=== PATIENT | female | born 1940 | race Caucasian/White ===

== ENCOUNTER 2019-01-27 15:22 | Emergency (ER) | payer OTHER, MEDICAID ==
[~2019-01-27] VITALS: Ht 149.9 cm; Wt 65.3 kg
[2019-01-27 15:26] VITALS: BP 123/84
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
--- NOTE | 2019-01-27 15:30 | NUR ---
NITIN PRUETT TALKING TO PT AT THIS TIME
--- NOTE | 2019-01-27 16:37 | NUR ---
PT AT CT AT THIS TIME
[2019-01-27 17:35] VITALS: BP 112/50
--- NOTE | 2019-01-27 17:35 | NUR ---
Patient discharged with v/s stable. Written and verbal after care instructions given and explained. Patient verbalized understanding. Wheel Chair Assisted with by caregiver TO CAR. All questions addressed prior to discharge. Advised to follow up with PMD.
== END 2019-01-27 17:35 | disposition home or self-care (01) ==
LOC: MED 15:22
DX: S05.12XA Contusion of eyeball and orbital tissues, left eye, initial encounter (principal); G30.9 Alzheimer's disease, unspecified; F02.80 Dementia in other diseases classified elsewhere, unspecified severity, without behavioral disturbance, psychotic disturbance, mood disturbance, and anxiety; I10 Essential (primary) hypertension; E03.9 Hypothyroidism, unspecified; F20.9 Schizophrenia, unspecified; Z98.890 Other specified postprocedural states; W50.0XXA Accidental hit or strike by another person, initial encounter; Y93.89 Activity, other specified; Y92.89 Other specified places as the place of occurrence of the external cause; Y99.8 Other external cause status
CPT/HCPCS: 70450; 99284

== ENCOUNTER 2019-02-07 09:29 | Inpatient (IN) | payer OTHER, MEDICAID ==
[~2019-02-07] VITALS: Ht 149.9 cm; Wt 73.0 kg
--- NOTE | 2019-02-07 09:31 | NUR ---
PT DEBBIE BLS TO ER BED 05
[2019-02-07 09:34] VITALS: BP 141/69
--- NOTE | 2019-02-07 09:43 | NUR ---
PT DEBBIE FROM [facility] FOR N/V/D SINCE THIS MORNING. UNKOWN HOW MANY EPISODES OF EMISES OR DIARRHEA. PT DENEIS PAIN AT THIS TIME. ABD IS SOFT, NON-TENDER, BOWEL SOUNDS ACTIVE X4 QUADRANTS. AAOX1, PER [facility] THIS IS PT BASELINE. VSS. ER MD TO SEE PT.
[2019-02-07] MEDS ORDERED: NACL 0.9% 1,000 ML IV ONE ×2 (09:52→14:40)
[2019-02-07] MEDS ORDERED: PROMETHAZINE 25 MG/ML VIAL IM ONE (09:55)
[2019-02-07] MEDS ORDERED: ONDANSETRON 4 MG/2 ML VIAL IVP ONE (09:55)
[2019-02-07 10:18] LABS: BASOPHILS % (AUTO) 0.1 % (0.0-2.0); EOSINOPHILS % (AUTO) 0.3 % (0.0-4.0); HEMATOCRIT 39.7 % (36-48); HEMOGLOBIN 12.9 g/dL (12.0-16.0); LYMPHOCYTES # (AUTO) 0.4 K/uL (2.5-16.5); LYMPHOCYTES % (AUTO) 3.7 % (20.5-51.1); MEAN CORPUSCULAR HEMOGLOBIN 27 pg (27-31); MEAN CORPUSCULAR HGB CONC 32 g/dL (33-37); MEAN CORPUSCULAR VOLUME 84.2 fL (80-94); MONOCYTES # (AUTO) 0.3 K/uL (0.8-1.0); NEUTROPHILS # (AUTO) 9.4 K/uL (1.8-7.7); NEUTROPHILS % (AUTO) 92.9 % (42.2-75.2); PLATELET COUNT (AUTO) 175 K/uL (140-450); RED BLOOD CELL COUNT(AUTO) 4.72 MIL/uL (4.20-5.40); RED CELL DISTRIBUTION WIDTH 14.1 % (11.6-13.7); WHITE BLOOD COUNT (AUTO) 10.1 K/uL (4.8-10.8)
--- NOTE | 2019-02-07 10:26 | NUR ---
PT WENT TO RADIALOGY AT THIS TIME.
[2019-02-07 10:27] LABS: ANION GAP 12.4 (8-16); CARBON DIOXIDE 26.5 mmol/L (21-32); CHLORIDE 103 mmol/L (98-107); CREATININE 1.2 mg/dL (0.6-1.3); GLUCOSE 139 mg/dL (74-106); POTASSIUM 3.9 mmol/L (3.5-5.1); SODIUM SERUM 138 mmol/L (136-145); UREA NITROGEN, BLOOD 28 mg/dL (7-18)
[2019-02-07 10:30] LABS: PROTHROMBIN TIME 9.4 secs (10.8-13.4)
--- NOTE | 2019-02-07 10:37 | NUR ---
PT RETURNED FROM RADIOLOGY
[2019-02-07 10:41] LABS: ALBUMIN 3.6 g/dL (3.4-5.0); AMYLASE 127 U/L (25-115); ASPARTATE AMINOTRANSFERASE 42 U/L (15-37); LIPASE 730 U/L (73-393); TOTAL BILIRUBIN 0.4 mg/dL (0.0-1.0)
[2019-02-07 10:51] LABS: ACETONE, SERUM NEGATIVE (NEGATIVE)
[2019-02-07 11:49] LABS: APPEARANCE,URINE CLEAR (CLEAR); BILIRUBIN,URINE NEGATIVE (NEGATIVE); BLOOD, URINE TRACE-I (NEGATIVE); COLOR,URINE YELLOW (YELLOW); LEUKOCYTE ESTERASE ,URINE NEGATIVE (NEGATIVE); NITRITE, URINE NEGATIVE (NEGATIVE); PH,URINE 5.5 (5.0-9.0); UGLUCOSE NEGATIVE (NEGATIVE)
[2019-02-07 12:02] LABS: RBC,URINE 0-5 /HPF (0-5); WBC,URINE 0-5 /HPF (0-5)
[2019-02-07 12:03] LABS: URINE AMORPHOUS URATE 1+ /HPF (None Seen)
--- NOTE | 2019-02-07 12:15 | NUR ---
PT PULLED OUT IV, ATTEMPTING TO GET OUT OF BED. EMT ADAKU AMBULATED PT TO RESTROOM. PT AAOX1, VSS.
[2019-02-07] MEDS ORDERED: LEVO0.114 PO (14:29)
[2019-02-07] MEDS ORDERED: LISI10TA11 PO (14:29)
[2019-02-07] MEDS ORDERED: ACET-2619 PO (14:29)
[2019-02-07] MEDS ORDERED: MIRT15TA PO (14:29)
[2019-02-07] MEDS ORDERED: CALC-46 PO (14:29)
[2019-02-07] MEDS ORDERED: RISP0.2515 PO (14:29)
[2019-02-07] MEDS ORDERED: CAPS1ADH5 TP (14:29)
[2019-02-07] MEDS ORDERED: CHLO25TA33 PO (14:29)
[2019-02-07] MEDS ORDERED: ACETAMINOPHEN 325 MG TAB PO PRN (14:40)
[2019-02-07] MEDS ORDERED: HYDROcodone/APAP 7.5/325 MG 1 TAB PO PRN (14:40)
[2019-02-07] MEDS ORDERED: ONDANSETRON 4 MG/2 ML VIAL IVP PRN (14:40)
[2019-02-07 15:10] VITALS: BP 127/47
--- NOTE | 2019-02-07 15:10 | NUR ---
Patient will be admitted to care of DR CHACKO. Admited to TEL. Will go to room 124A. Belongings list completed. Report to SHAYNA MARTINEZ.
--- NOTE | 2019-02-07 15:10 | NUR ---
PATIENT WAS TRANSFERRED FROM ER IN [facility]. REPORT WAS GIVEN AT BEDSIDE. VS WAS TAKEN. MRSA WAS SWABBED. PATIENT WAS AWAKE, A/0 X1, UNABLE TO ANSWER QUESTIONS APPROPRIATELY. RESPIRATION EVEN, UNLABOR ON ROOM AIR. SKIN DRY AND WARM. IV PATENT AND INTACT. PATIENT WAS ORIENTED TO ROOM, STAFF, AND CALL LIGHT. PLAN OF CARE WAS DISCUSSED WITH PATIENT. BED AT LOW POSITION, SIDE RAILS UP. CALL LIGHT WITHIN REACH. BED ALARM ACTIVE
[2019-02-07] MEDS: DEXT 5% /NACL 0.9% 1,000 ML IV SCH (15:32)
--- NOTE | 2019-02-07 17:00 | NUR ---
PATIENT WAS ASSISTED TO GO TO COMMODE, STEADY GAIT.
[2019-02-07 17:22] LABS: BARBITURATE, URINE NEG. ng/ml (NEG <=200); BENZODIAZEPINE, URINE NEG. ng/mL (NEG <=200); CANNABINOID, URINE NEG. ng/mL (NEG <=50); COCAINE, URINE NEG. ng/mL (NEG <=300); OPIATE, URINE NEG. ng/mL (NEG <=2000); PHENCYCLIDINE SCREEN,URINE NEG. ng/mL (NEG <=25)
[2019-02-07 17:26] LABS: CHOL/HDL RATIO 4.2 (1-4.5); FREE T4 (FREE THYROXINE) 1.22 ng/dL (0.76-1.46); THYROID STIMULATING HORMONE 0.08 uIU/mL (0.34-3.74)
--- NOTE | 2019-02-07 18:13 | NUR ---
PATIENT WAS RESTING COMFORTABLY. RESPIRATION EVEN, UNLABOR ON ROOM AIR. NO DISTRESS NOTED AT THIS TIME. IV PATENT AND INTACT.
--- NOTE | 2019-02-07 19:30 | NUR ---
REPORT WAS GIVEN TO SIMULATION TECHNICIAN NURSE. PATIENT IS STABLE AT THIS TIME
--- NOTE | 2019-02-07 19:31 | NUR ---
RECEIVED REPORT AT PT BEDSIDE FROM JUAN PARSONS. PT AAOX1 TO SELF ONLY, ON ROOM AIR. ABLE TO FOLLOW COMMANDS, AND ABLE TO MAKE SOME NEEDS KNOWN. PT AMBULATES WITH MODERATE ASSIST, AND SKIN IS INTACT. RESPIRATIONS EVEN AND UNLABORED. PT HAS A 20G IV TO RIGHT AC. DISCUSSED PLAN OF CARE AND SAFETY ISSUES WITH PT, PT VERBALIZED UNDERSTANDING BUT NEEDS REINFORCEMENT. NO SIGNS OF DISTRESS NOTED. DENIES PAIN. VITAL SIGNS STABLE. BED IN LOWEST POSITION, CALL LIGHT WITHIN REACH. WILL CONTINUE TO MONITOR.
[2019-02-07 20:00] VITALS: BP 98/49
[2019-02-07] MEDS: MIRTAZAPINE 15 MG TAB PO SCH (20:40)
[2019-02-07] MEDS: DOCUSATE SODIUM 100 MG GELCAP PO SCH (20:43)
--- NOTE | 2019-02-07 20:43 | NUR ---
ADMINISTERED SCHEDULED MEDICATIONS EXCEPT COLACE, PT TOLERATED WELL. PT REFUSED COLACE AND DAUGHTER SAID IT WAS OKAY BECAUSE PT HAD DIARRHEA EARLIER.
--- NOTE | 2019-02-07 22:24 | NUR ---
PT RESTING IN ROOM. NO SIGNS OF DISTRESS NOTED. DENIES PAIN. BED IN LOWEST POSITION, CALL LIGHT WITHIN REACH. WILL CONTINUE TO MONITOR.
[2019-02-08] VITALS: BP 116/46
--- NOTE | 2019-02-08 | NUR ---
NO SIGNS OF DISTRESS NOTED. BED IN LOWEST POSITION, CALL LIGHT WITHIN REACH. WILL CONTINUE TO MONITOR.
[2019-02-08] MEDS: DEXT 5% /NACL 0.9% 1,000 ML IV SCH ×2 (01:08→09:36)
--- NOTE | 2019-02-08 02:14 | NUR ---
PT SLEEPING, BUT EASILY AROUSABLE. DENIES HAVING ANY PAIN. BED IN LOWEST POSITION, CALL LIGHT WITHIN REACH. WILL CONTINUE TO MONITOR.
[2019-02-08 04:00] VITALS: BP 111/41
--- NOTE | 2019-02-08 04:00 | NUR ---
VITAL SIGNS STABLE, DENIES HAVING ANY PAIN. NO SIGNS OF DISTRESS NOTED. BED IN LOWEST POSITION, CALL LIGHT WITHIN REACH. WILL CONTINUE TO MONITOR.
[2019-02-08] MEDS: LEVOTHYROXINE 0.112 MG TAB PO SCH (06:09)
--- NOTE | 2019-02-08 06:11 | NUR ---
ADMINISTERED SCHEDULED MEDICATION, PT TOLERATED WELL.
[2019-02-08 06:51] LABS: BASOPHILS % (AUTO) 0.5 % (0.0-2.0); EOSINOPHILS # (AUTO) 0.1 K/uL (0-0.4); HEMATOCRIT 32.6 % (36-48); HEMOGLOBIN 10.6 g/dL (12.0-16.0); LYMPHOCYTES # (AUTO) 0.8 K/uL (2.5-16.5); MEAN CORPUSCULAR HEMOGLOBIN 27 pg (27-31); MEAN CORPUSCULAR HGB CONC 32 g/dL (33-37); MEAN CORPUSCULAR VOLUME 83.5 fL (80-94); MONOCYTES # (AUTO) 0.3 K/uL (0.8-1.0); MONOCYTES % (AUTO) 10.1 % (1.7-9.3); NEUTROPHILS # (AUTO) 1.7 K/uL (1.8-7.7); NEUTROPHILS % (AUTO) 60.4 % (42.2-75.2); PLATELET COUNT (AUTO) 134 K/uL (140-450); RED BLOOD CELL COUNT(AUTO) 3.91 MIL/uL (4.20-5.40); RED CELL DISTRIBUTION WIDTH 14.2 % (11.6-13.7); WHITE BLOOD COUNT (AUTO) 2.9 K/uL (4.8-10.8)
--- NOTE | 2019-02-08 07:26 | NUR ---
ENDORSED PT TO DAY SHIFT RN MAGGIE, AT BEDSIDE, FOR CONTINUITY OF CARE. PT IN STABLE CONDITION.
--- NOTE | 2019-02-08 07:29 | NUR ---
RECEIVED BEDSIDE REPORT FROM COOK APPRENTICE PASTRY NURSE FOR CONTINUITY OF CARE. PATIENT IS RESTING ON BED AT THIS TIME. PATIENT IS AOX1, TO NAME ONLY. RESPIRATION EVEN AND UNLABORED. ON RA. DENIES PAIN AND SOB. NO SIGNS OF DISTRESS NOTED. IV ON RAC 20G, INTACT AND DRY, INFUSING PER MD ORDER . R SKIN INTACT AND DRY. ABLE TO AMBULATE WITH ASSIST. BEDSIDE COMMODE IS BY BEDSIDE. FALL PRECAUTION IN PLACE. DISCUSSED PLAN OF CARE WITH PATIENT, AND PATIENT SAID OK. BED ALARM ACTIVATED. BED IN LOW POSITION AND CALL LIGHT WITHIN REACH. TELE MONITOR ATTACHED. INSTRUCTED PATIENT TO USE THE CALL LIGHT FOR ANY ASSISTANCE AND PATIENT SAID ALRIGHT.
[2019-02-08 07:43] LABS: ANION GAP 8.1 (8-16); CARBON DIOXIDE 25.1 mmol/L (21-32); CHLORIDE 109 mmol/L (98-107); CREATININE 0.8 mg/dL (0.6-1.3); GLUCOSE 96 mg/dL (74-106); POTASSIUM 3.2 mmol/L (3.5-5.1); SODIUM SERUM 139 mmol/L (136-145); UREA NITROGEN, BLOOD 17 mg/dL (7-18)
[2019-02-08 07:47] LABS: MAGNESIUM 1.7 mg/dL (1.8-2.4); PHOSPHORUS 2.7 mg/dL (2.5-4.9)
[2019-02-08 08:00] VITALS: BP 105/48
--- NOTE | 2019-02-08 08:33 | NUR ---
PATIENT HAS BEEN SCREENED AND CATEGORIZED MODERATE NUTRITION RISK. PATIENT WILL BE SEEN WITHIN 3-5 DAYS OF ADMISSION. 02/10/19[address]
[2019-02-08] MEDS ORDERED: risperiDONE 1 MG TAB PO SCH (09:00)
[2019-02-08] MEDS: DOCUSATE SODIUM 100 MG GELCAP PO SCH ×2 (09:20→21:00)
[2019-02-08] MEDS: LISINOPRIL 10 MG TAB PO SCH (09:21)
--- NOTE | 2019-02-08 09:24 | NUR ---
ADMINISTERED MEDS PER MD ORDER, PATIENT TOLERATED WELL. HOLD HEPARIN DUE TO LOW PLT 134 FROM AM LAB. PATIENT IS AWAKE AND WATCHING TV ON BED. INSTRUCTED PATIENT TO USE THE CALL LIGHT FOR ANY ASSISTANCE AND PATIENT VERBALIZED OK. BED ALARM ACTIVATED. BED IN LOW POSITION AND CALL LIGHT WITHIN REACH. TELE MONITOR ATTACHED.
--- NOTE | 2019-02-08 10:10 | NUR ---
PATIENT IS TALKING TO ISA MARIE AT BEDSIDE. NO SIGNS OF DISTRESS NOTED. SAFETY MEASURES IN PLACE. TELE MONITOR ATTACHED.
--- NOTE | 2019-02-08 11:20 | NUR ---
PATIENT IS RESTING ON BED AT THIS TIME. DENIES PAIN AND SOB. NO SIGNS OF DISTRESS NOTED. SAFETY MEASURES IN PLACE. BED ALARM ACTIVATED. TELE MONITOR ATTACHED.
[2019-02-08 12:00] VITALS: BP 124/43
[2019-02-08] MEDS: NACL 0.9% 1,000 ML IV SCH (12:25)
[2019-02-08] MEDS ORDERED: MAGNESIUM OXIDE 400 MG TAB PO SCH (12:30)
[2019-02-08] MEDS ORDERED: POTASSIUM CHLORIDE 10 MEQ TABER PO SCH (12:30)
--- NOTE | 2019-02-08 12:40 | NUR ---
PATIENT RECEIVED HER LUNCH TRAY. SHE IS SITTING UP ON BED AND DRINKING SOUP. NO SIGNS OF DISTRESS NOTED. SAFETY MEASURES IN PLACE.
--- NOTE | 2019-02-08 13:20 | NUR ---
PATIENT IS RESTING ON BED AT THIS TIME. NO SIGNS OF DISTRESS NOTED. SAFETY MEASURES IN PLACE. TELE MONITOR ATTACHED.
--- NOTE | 2019-02-08 13:25 | NUR ---
PATIENT PULLED OUT HER OWN IV. CHECKED IV CANNULA INTACT AND NO BLEEDING AT IV SITE. STARTED NEW IV ON L AC 22G, PATENT AND INTACT, INFUSING PER MD ORDER. ORIENTED PATIENT NOT TO PULL OUT HER IV, AND PATIENT SAID OK.
[2019-02-08 14:35] LABS: CHOL/HDL RATIO 3.7 (1-4.5)
--- NOTE | 2019-02-08 15:35 | NUR ---
PATIENT IS AWAKE ON BED AND WATCHING TV. NO SIGNS OF DISTRESS NOTED. SAFETY MEASURES IN PLACE.
--- NOTE | 2019-02-08 17:15 | NUR ---
PATIENT'S DAUGHTER RENETTA IS BY BEDSIDE. NO SIGNS OF DISTRESS NOTED.
[2019-02-08 18:36] VITALS: BP 135/53
--- NOTE | 2019-02-08 19:25 | NUR ---
ENDORSED PATIENT AT BEDSIDE TO MANAGER RAIL NURSE FOR CONTINUITY OF CARE. DAUGHTER IS AT BEDSIDE. PATIENT IS IN STABLE CONDITION.
--- NOTE | 2019-02-08 19:26 | NUR ---
RECEIVED REPORT FROM DAY SHIFT NURSE. AAOX1. NO C/O PAIN OR SOB. NO C/O NAUSEA OR VOMITING. ON ROOM AIR. SKIN INTACT. IV TO LEFT AC #22G, NS AT 60 ML/HR INFUSING WELL. PT HAS BEDSIDE COMMODE. FALL PRECAUTION IN PLACE. CALL LIGHT WITHIN REACH.
[2019-02-08] MEDS: MIRTAZAPINE 15 MG TAB PO SCH (20:11)
--- NOTE | 2019-02-08 20:15 | NUR ---
PT'S PLATELET COUNT TODAY 134. ASKED DR. MI IF IT IS OKAY TO GIVE HEPARIN 5000 UNITS SUBQ. PER , IT'S OKAY TO GIVE IT.
--- NOTE | 2019-02-08 20:20 | NUR ---
PT'S DAUGHTER TAYA AT BEDSIDE, REFUSED COLACE. PER DAUGHTER, PT HAD A BM TODAY AND DOESN'T NEED COLACE.
[2019-02-08] MEDS ORDERED: MELATONIN 3 MG TAB PO PRN (23:30)
--- NOTE | 2019-02-08 23:42 | NUR ---
PT C/O UNABLE TO SLEEP AND TRIED TO GET OUT OF BED MULTIPLE TIMES. BED ALARM ON. DR. MI MADE AWARE AND ORDERED MELATONIN 1.5 MG. PT TOLERATED WELL. FALL PRECAUTION IN PLACE.
[2019-02-09] VITALS: BP 131/58
--- NOTE | 2019-02-09 02:30 | NUR ---
PT SLEEPING BUT WAKES EASILY. NO S/S OF PAIN OR DISCOMFORT. NO S/S OF RESP DISTRESS NOTED. SAFETY PRECAUTION IN PLACE.
--- NOTE | 2019-02-09 04:05 | NUR ---
PT AWAKE AT THIS TIME. NO C/O PAIN OR SOB. ALL NEEDS ATTENDED AT THIS TIME.
[2019-02-09] MEDS: NACL 0.9% 1,000 ML IV SCH (04:45)
--- NOTE | 2019-02-09 06:00 | NUR ---
PT SLEEPING. NO S/S OF RESP DISTRESS. NO S/S OF PAIN.
[2019-02-09] MEDS: LEVOTHYROXINE 0.112 MG TAB PO SCH (07:04)
--- NOTE | 2019-02-09 07:10 | NUR ---
ENDORSED PT TO DAY SHIFT NURSE. PT IN STABLE CONDITION.
--- NOTE | 2019-02-09 07:11 | NUR ---
RECEIVED REPORT FROM PM NURSE AT BEDSIDE. PT SLEEPING IN HER BED COMFORTABLY. IVF INFUSING WELL. PT IS CONFUSED, BED ALARM ON. CALL LIGHT WITHIN PTS REACH. INFORMED HER TO USE CALL LIGHT FOR ANY HELP. WILL CONTINUE TO MONITOR PT.
[2019-02-09 07:38] LABS: MAGNESIUM 2.1 mg/dL (1.8-2.4); PHOSPHORUS 2.2 mg/dL (2.5-4.9)
[2019-02-09 07:39] LABS: BASOPHILS % (AUTO) 1.2 % (0.0-2.0); EOSINOPHILS # (AUTO) 0.1 K/uL (0-0.4); EOSINOPHILS % (AUTO) 3.9 % (0.0-4.0); HEMATOCRIT 35.1 % (36-48); HEMOGLOBIN 11.4 g/dL (12.0-16.0); LYMPHOCYTES # (AUTO) 0.9 K/uL (2.5-16.5); LYMPHOCYTES % (AUTO) 36.8 % (20.5-51.1); MEAN CORPUSCULAR HEMOGLOBIN 27 pg (27-31); MEAN CORPUSCULAR HGB CONC 33 g/dL (33-37); MEAN CORPUSCULAR VOLUME 83.4 fL (80-94); MONOCYTES # (AUTO) 0.3 K/uL (0.8-1.0); MONOCYTES % (AUTO) 14.6 % (1.7-9.3); NEUTROPHILS % (AUTO) 43.5 % (42.2-75.2); PLATELET COUNT (AUTO) 142 K/uL (140-450); RED BLOOD CELL COUNT(AUTO) 4.21 MIL/uL (4.20-5.40); RED CELL DISTRIBUTION WIDTH 14.3 % (11.6-13.7); WHITE BLOOD COUNT (AUTO) 2.3 K/uL (4.8-10.8)
[2019-02-09 07:41] LABS: ANION GAP 11.3 (8-16); CARBON DIOXIDE 25.9 mmol/L (21-32); CHLORIDE 107 mmol/L (98-107); CREATININE 0.8 mg/dL (0.6-1.3); GLUCOSE 95 mg/dL (74-106); POTASSIUM 3.2 mmol/L (3.5-5.1); SODIUM SERUM 141 mmol/L (136-145); UREA NITROGEN, BLOOD 9 mg/dL (7-18)
[2019-02-09 07:47] LABS: AMYLASE 64 U/L (25-115); LIPASE 291 U/L (73-393)
[2019-02-09 08:00] VITALS: BP 119/52
[2019-02-09] MEDS: DOCUSATE SODIUM 100 MG GELCAP PO SCH (09:43)
[2019-02-09] MEDS: LISINOPRIL 10 MG TAB PO SCH (09:44)
--- NOTE | 2019-02-09 09:48 | NUR ---
ADMINISTERED MEDS TO PT ORDERED. PT LYING ON HER BED, RESTING COMFORTABLY. NO SIGN OF DISTRESS NOTED. BED ALARM ON. CALL LIGHT WITHIN REACH. WILL CONTINUE TO MONITOR PT.
--- NOTE | 2019-02-09 10:59 | NUR ---
CONTACTED NITIN SIMPSON, SPOKE WITH [employer]IS OFC ENGINE EMISSION TECHNICIAN, STATED SHE WILL SET UP A SKIN TANNER AT 1 PM TODAY. SITAL NURSE ASSIGNED MADE AWARE.
--- NOTE | 2019-02-09 11:30 | NUR ---
CHECKED ON PT. CHAIN MAKER LOOM CONTROL WITH THE PT. PT VERY CONFUSED, PULLED HER IV OUT. PT TO BE DISCHARGED PT HAS DC ORDER. INFORMED NITIN FRANCO. AGRICULTURAL ECONOMICS TEACHER TIME 1300. PT KEEPS GETTING OUT OF BED. WILL CONTINUE TO MONITOR PT.
[2019-02-09] MEDS ORDERED: POTASSIUM CHLORIDE 40 MEQ, LIDOCAINE MPF 1% - 5 mL VIAL 25 MG in NACL 0.9% 250 ML IV ONE (11:55)
[2019-02-09] MEDS ORDERED: POTASSIUM CHLORIDE 20% 40 MEQ/15 ML UDC PO SCH (13:30)
--- NOTE | 2019-02-09 14:40 | NUR ---
PT ROCIO ALVAREZ AT THE BEDSIDE. GAVE ALL THE DISCHARGE PAPER WORK AND THE PACKET. [facility]. PT STABLE AT THE TIME OF DISCHARGE.
--- NOTE | 2019-02-09 16:31 | NUR ---
JUAN MARTINEZ THE PRIMARY NURSE RECEIVED A CALL FROM [employer] AND REQUESTED THE D/C SUMMARY TO BE FAXED TO [phone] AND FAXED.
== END 2019-02-09 14:40 | DRG 438 ==
LOC: MED 09:29 → MTU 14:37
PROVIDERS: ADMIT General Practice; ATTEND General Practice
DX: K85.90 Acute pancreatitis without necrosis or infection, unspecified (principal); G93.41 Metabolic encephalopathy; K44.9 Diaphragmatic hernia without obstruction or gangrene; G30.9 Alzheimer's disease, unspecified; F02.80 Dementia in other diseases classified elsewhere, unspecified severity, without behavioral disturbance, psychotic disturbance, mood disturbance, and anxiety; F20.9 Schizophrenia, unspecified; I10 Essential (primary) hypertension; E86.0 Dehydration; E03.9 Hypothyroidism, unspecified; K57.30 Diverticulosis of large intestine without perforation or abscess without bleeding; F32.9 Major depressive disorder, single episode, unspecified; E83.42 Hypomagnesemia; E87.6 Hypokalemia; D64.9 Anemia, unspecified; D71 Functional disorders of polymorphonuclear neutrophils; E78.5 Hyperlipidemia, unspecified; Z79.899 Other long term (current) drug therapy
CPT/HCPCS: 36415; 70450; 71045; 76705; 80048; 80053; 80305; 81001; 82009; 82140; 82150; 83036; 83605; 83615; 83690; 83735; 83880; 84100; 84439; 84443; 84484; 85025; 85610; 87081; 93005; 96361; 96372; 96374; 97116; 99285; C1758; J1644; J2001; J2405; J2550; J3480; J7030; J7042; Q0092

== ENCOUNTER 2019-04-30 12:54 | Emergency (ER) | payer MEDICAID, OTHER ==
[~2019-04-30] VITALS: Ht 149.9 cm; Wt 69.9 kg
[~2019-04-30 12:54] MED LIST: ACET-2619 PO; CALC-46 PO; CAPS1ADH5 TP; CHLO25TA33 PO; LEVO0.114 PO; LISI10TA11 PO; MIRT15TA PO; RISP0.2515 PO
[2019-04-30 13:03] VITALS: BP 136/71
--- NOTE | 2019-04-30 13:07 | NUR ---
PT AMB TO BED 7 WITH STEADY GAIT
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
--- NOTE | 2019-04-30 14:08 | NUR ---
Patient discharged with v/s stable. Written and verbal after care instructions given and explained. Patient alert, oriented and verbalized understanding of instructions. Ambulatory with steady gait. All questions addressed prior to discharge. ID band removed. Patient advised to follow up with PMD. Rx of BENADRYL TABLET AND CREAM given. Patient educated on indication of medication including possible reaction and side effects. Opportunity to ask questions provided and answered.
[2019-04-30 14:09] VITALS: BP 136/71
== END 2019-04-30 14:08 | disposition home or self-care (01) ==
LOC: MED 12:54
DX: R21 Rash and other nonspecific skin eruption (principal); I10 Essential (primary) hypertension; E03.9 Hypothyroidism, unspecified; G30.9 Alzheimer's disease, unspecified; F02.80 Dementia in other diseases classified elsewhere, unspecified severity, without behavioral disturbance, psychotic disturbance, mood disturbance, and anxiety; Z79.899 Other long term (current) drug therapy; Z79.1 Long term (current) use of non-steroidal anti-inflammatories (NSAID)
CPT/HCPCS: 99282

== ENCOUNTER 2019-05-07 18:00 | Emergency (ER) | payer OTHER ==
[~2019-05-07] VITALS: Ht 147.3 cm; Wt 70.5 kg
[2019-05-07 18:04] VITALS: BP 131/63
[2019-05-07] MEDS ORDERED: predniSONE 20 MG TAB PO ONE (18:25)
[2019-05-07 18:55] VITALS: BP 124/67
== END 2019-05-07 18:55 | disposition home or self-care (01) ==
LOC: MED 18:00
DX: S40.862A Insect bite (nonvenomous) of left upper arm, initial encounter (principal); S40.861A Insect bite (nonvenomous) of right upper arm, initial encounter; S80.862A Insect bite (nonvenomous), left lower leg, initial encounter; S80.861A Insect bite (nonvenomous), right lower leg, initial encounter; S30.861A Insect bite (nonvenomous) of abdominal wall, initial encounter; S20.369A Insect bite (nonvenomous) of unspecified front wall of thorax, initial encounter; S20.469A Insect bite (nonvenomous) of unspecified back wall of thorax, initial encounter; R21 Rash and other nonspecific skin eruption; W57.XXXA Bitten or stung by nonvenomous insect and other nonvenomous arthropods, initial encounter; Y93.89 Activity, other specified; Y92.89 Other specified places as the place of occurrence of the external cause; Y99.8 Other external cause status
CPT/HCPCS: 99283; J7512

== ENCOUNTER 2019-05-21 18:55 | Emergency (ER) | payer OTHER, MEDICAID ==
[~2019-05-21] VITALS: Ht 147.3 cm; Wt 69.9 kg
[2019-05-21 19:01] VITALS: BP 119/77
--- NOTE | 2019-05-21 19:06 | NUR ---
WAIT AT LOBBY.VSS.
--- NOTE | 2019-05-21 19:35 | NUR ---
PT AMBULATED TO BED 08 WITH STEADY GAIT. ACCOMPANIED BY DAUGHTER.
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
[2019-05-21 21:05] VITALS: BP 129/80
--- NOTE | 2019-05-21 21:05 | NUR ---
Patient discharged with v/s stable. Written and verbal after care instructions given and explained. Patient alert, oriented and verbalized understanding of instructions. Ambulatory with steady gait. All questions addressed prior to discharge. ID band removed. Patient daughter advised to follow up with PMD. Rx of Permethrin given. Patient educated on indication of medication including possible reaction and side effects. Opportunity to ask questions provided and answered.
== END 2019-05-21 21:05 | disposition home or self-care (01) ==
LOC: MED 18:55
DX: B86 Scabies (principal); I10 Essential (primary) hypertension; E03.9 Hypothyroidism, unspecified; G30.9 Alzheimer's disease, unspecified; F02.80 Dementia in other diseases classified elsewhere, unspecified severity, without behavioral disturbance, psychotic disturbance, mood disturbance, and anxiety; Z79.1 Long term (current) use of non-steroidal anti-inflammatories (NSAID); Z79.899 Other long term (current) drug therapy
CPT/HCPCS: 99283

== ENCOUNTER 2019-05-26 19:56 | Emergency (ER) | payer OTHER, MEDICAID ==
[~2019-05-26] VITALS: Ht 149.9 cm; Wt 69.9 kg
[2019-05-26 20:04] VITALS: BP 126/68
--- NOTE | 2019-05-26 20:04 | NUR ---
TRIAGE COMPLETE. PT TO WAIT IN LOBBY FOR BED IN MAIN ED. VSS.
--- NOTE | 2019-05-26 20:32 | NUR ---
PT REQUESTING PERMETHRIN 5% CREAM 60 GM FOR MEDICATION REFILL.
--- NOTE | 2019-05-26 22:20 | NUR ---
PT CALLED FROM LOBBY. NO ANSWER.
== END 2019-05-26 22:20 | disposition left against medical advice (07) ==
LOC: MED 19:56
DX: Z76.0 Encounter for issue of repeat prescription (principal); Z53.21 Procedure and treatment not carried out due to patient leaving prior to being seen by health care provider

== ENCOUNTER 2019-06-16 13:04 | Emergency (ER) | payer OTHER, MEDICAID ==
[~2019-06-16] VITALS: Ht 152.4 cm; Wt 68.0 kg
[2019-06-16 13:04] VITALS: BP 96/34
--- NOTE | 2019-06-16 13:11 | NUR ---
Patient bib bls taken to bed 1
--- NOTE | 2019-06-16 13:35 | NUR ---
NOTIFIED DR. RICKS OF BP 96/34, TO PLACE ORDERS.
[2019-06-16] MEDS ORDERED: NACL 0.9% 1,000 ML IV SCH (13:36)
--- NOTE | 2019-06-16 13:41 | NUR ---
DEBBIE FROM [facility], C/O FLU-LIKE SYMPTOMS AND DECREASED APPETITE X2 DAYS. PT ALSO RECEIVING TX FOR SCABIES (FINISHED TOPICAL AND JUST STARTED ORAL). PT UNABLE TO CLEARLY CONVEY SYMPTOMS, DUE TO HISTORY OF DEMENTIA. HISTORY IS FRAGMENTED AND CONTRADICTORY. LUNGS CTAB. NO COUGH NOTED AT THIS TIME. HX DEMENTIA
--- NOTE | 2019-06-16 13:47 | NUR ---
XRAY AT BEDSIDE.
--- NOTE | 2019-06-16 13:48 | NUR ---
LAB AT BEDSIDE.
[2019-06-16 14:03] LABS: BASOPHILS % (AUTO) 0.2 % (0.0-2.0); EOSINOPHILS % (AUTO) 0.5 % (0.0-4.0); HEMATOCRIT 34.8 % (36-48); HEMOGLOBIN 11.4 g/dL (12.0-16.0); LYMPHOCYTES # (AUTO) 1.3 K/uL (2.5-16.5); LYMPHOCYTES % (AUTO) 12.8 % (20.5-51.1); MEAN CORPUSCULAR HEMOGLOBIN 29 pg (27-31); MEAN CORPUSCULAR HGB CONC 33 g/dL (33-37); MEAN CORPUSCULAR VOLUME 87.5 fL (80-94); MONOCYTES # (AUTO) 0.9 K/uL (0.8-1.0); NEUTROPHILS # (AUTO) 7.7 K/uL (1.8-7.7); NEUTROPHILS % (AUTO) 77.5 % (42.2-75.2); PLATELET COUNT (AUTO) 165 K/uL (140-450); RED BLOOD CELL COUNT(AUTO) 3.98 MIL/uL (4.20-5.40); RED CELL DISTRIBUTION WIDTH 13.6 % (11.6-13.7)
--- NOTE | 2019-06-16 14:10 | NUR ---
URINE SAMPLE HANDED TO POLEYARD SUPERVISOR. Addendum: 06/16/19 at 1530 by JOSHUA SAMPLE VIA IN&OUT CATH
[2019-06-16 14:13] LABS: ANION GAP 8.8 (8-16); CARBON DIOXIDE 30.6 mmol/L (21-32); CHLORIDE 106 mmol/L (98-107); CREATININE 1.8 mg/dL (0.6-1.3); GLUCOSE 114 mg/dL (74-106); POTASSIUM 3.4 mmol/L (3.5-5.1); SODIUM SERUM 142 mmol/L (136-145); UREA NITROGEN, BLOOD 34 mg/dL (7-18)
[2019-06-16 14:19] LABS: ALBUMIN 3.3 g/dL (3.4-5.0); ASPARTATE AMINOTRANSFERASE 34 U/L (15-37); LIPASE 314 U/L (73-393); TOTAL BILIRUBIN 0.5 mg/dL (0.0-1.0)
[2019-06-16 14:28] LABS: APPEARANCE,URINE CLEAR (CLEAR); BILIRUBIN,URINE 1+ (NEGATIVE); BLOOD, URINE NEGATIVE (NEGATIVE); COLOR,URINE YELLOW (YELLOW); LEUKOCYTE ESTERASE ,URINE TRACE (NEGATIVE); NITRITE, URINE NEGATIVE (NEGATIVE); PH,URINE 5.5 (5.0-9.0); UGLUCOSE NEGATIVE (NEGATIVE)
[2019-06-16 14:39] LABS: RBC,URINE 0-5 /HPF (0-5); WBC,URINE 0-5 /HPF (0-5)
--- NOTE | 2019-06-16 14:42 | NUR ---
LEFT VOICEMAIL FOR DAUGHTER TAYA- PT WANTS TO SPEAK TO HER.
--- NOTE | 2019-06-16 14:52 | NUR ---
PT FOUND IN ROOM, STANDING BY BED, GETTING DRESSED. PT REMOVED ALL LEADS, IV, PULSE OX.
--- NOTE | 2019-06-16 14:56 | NUR ---
DAUGHTER TAYA SPOKE ON PHONE WITH PATIENT. PT AGREED TO STAY HERE AND WAIT FOR TAYA.
--- NOTE | 2019-06-16 15:09 | NUR ---
DR. RICKS EVALUATING PT AT BEDSIDE.
--- NOTE | 2019-06-16 15:19 | NUR ---
SPOKE WITH NITIN SIMPSON AND NO TRANSPORTATION AVAILABLE. FIRST MATE GOES HOME AT 1500.
--- NOTE | 2019-06-16 15:33 | NUR ---
PT RESTING IN BED. NAD. RESPIRATION EVEN AND UNLABORED.
--- NOTE | 2019-06-16 16:01 | NUR ---
WILL D/C PATIENT WHEN TRANSPORT AVAILABLE.
--- NOTE | 2019-06-16 16:25 | NUR ---
INFORMED DR. RICKS OF BP 120/38. PER RADHA YODER TO PROCEED WITH DISCHARGE.
--- NOTE | 2019-06-16 16:35 | NUR ---
Patient discharged with v/s stable. Written and verbal after care instructions given and explained. Daughter Florence verbalized understanding. Wheel Chair Assisted with to car. All questions addressed prior to discharge. Dr. Granados explained visit to daughter Florence and answered all questions. Advised to follow up with PMD.
[2019-06-16 16:43] VITALS: BP 120/38
== END 2019-06-16 16:35 | disposition home or self-care (01) ==
LOC: MED 13:04
DX: R41.0 Disorientation, unspecified (principal); F03.90 Unspecified dementia, unspecified severity, without behavioral disturbance, psychotic disturbance, mood disturbance, and anxiety; R05 Cough; G30.9 Alzheimer's disease, unspecified; I10 Essential (primary) hypertension; E03.9 Hypothyroidism, unspecified; Z79.899 Other long term (current) drug therapy
CPT/HCPCS: 36415; 71045; 80053; 81001; 83690; 85025; 96360; 99284; J7030; Q0092; C1758

== ENCOUNTER 2019-07-29 14:31 | Emergency (ER) | payer OTHER, MEDICAID ==
[~2019-07-29] VITALS: Ht 129.5 cm; Wt 68.0 kg
[2019-07-29 14:49] VITALS: BP 115/60
--- NOTE | 2019-07-29 14:50 | NUR ---
BIB JOSHUA W C/O LOWER BACK PAIN STARTING YESTERDAY. PER JOSHUA, PT HAS BEEN MORE AGGITATED THAN USUAL AND HAS BEEN COMPLAINING OF BACK PAIN. DENIES INJURY. DENIES PAIN URINATING. JOSHUA REPORTS THAT SHE FEELS PT IS BEHAVING DIFFERENTLY , YESTERDAY SHE KNEW HER GRANDAUGHTERS NAME AND TODAY SHE DIDN'T. A/O X2 TO PERSON AND ONLY. [facility]: 14 ERMD MADE AWARE OF STATUS. SIDE RAILSX1. GRANDDAUGHTER AT BEDSIDE. HX: CARDIAC PROBLEMS, DEMENTIA RX: UNKNOWN
--- NOTE | 2019-07-29 14:59 | NUR ---
PT TAKEN TO BED 4.
--- NOTE | 2019-07-29 15:12 | NUR ---
Dr. Muñoz evaluating patient at bedside.
[2019-07-29] MEDS ORDERED: NACL 0.9% 1,000 ML IV ONE (15:15)
[2019-07-29 15:38] LABS: BASOPHILS % (AUTO) 0.5 % (0.0-2.0); EOSINOPHILS # (AUTO) 0.1 K/uL (0-0.4); EOSINOPHILS % (AUTO) 1.8 % (0.0-4.0); HEMATOCRIT 32.5 % (36-48); HEMOGLOBIN 10.5 g/dL (12.0-16.0); LYMPHOCYTES # (AUTO) 1.1 K/uL (2.5-16.5); LYMPHOCYTES % (AUTO) 21.6 % (20.5-51.1); MEAN CORPUSCULAR HEMOGLOBIN 28 pg (27-31); MEAN CORPUSCULAR HGB CONC 32 g/dL (33-37); MEAN CORPUSCULAR VOLUME 88.2 fL (80-94); MONOCYTES # (AUTO) 0.5 K/uL (0.8-1.0); MONOCYTES % (AUTO) 8.9 % (1.7-9.3); NEUTROPHILS # (AUTO) 3.5 K/uL (1.8-7.7); NEUTROPHILS % (AUTO) 67.2 % (42.2-75.2); PLATELET COUNT (AUTO) 181 K/uL (140-450); RED BLOOD CELL COUNT(AUTO) 3.69 MIL/uL (4.20-5.40); RED CELL DISTRIBUTION WIDTH 12.9 % (11.6-13.7); WHITE BLOOD COUNT (AUTO) 5.2 K/uL (4.8-10.8)
[2019-07-29 15:49] LABS: ANION GAP 8.9 (8-16); CARBON DIOXIDE 30.4 mmol/L (21-32); CHLORIDE 107 mmol/L (98-107); CREATININE 1.1 mg/dL (0.6-1.3); GLUCOSE 102 mg/dL (74-106); POTASSIUM 4.3 mmol/L (3.5-5.1); SODIUM SERUM 142 mmol/L (136-145); UREA NITROGEN, BLOOD 25 mg/dL (7-18)
[2019-07-29 15:55] LABS: ALBUMIN 3.3 g/dL (3.4-5.0); ASPARTATE AMINOTRANSFERASE 30 U/L (15-37); LIPASE 433 U/L (73-393); TOTAL BILIRUBIN 0.2 mg/dL (0.0-1.0)
--- NOTE | 2019-07-29 17:37 | NUR ---
PT GOIGN TO CT VIA WHEELCHAIR
--- NOTE | 2019-07-29 18:06 | NUR ---
PATIENT IS IN NO DISTRESS AT THIS TIME. DAUGHTER AT BEDSIDE. WILL CONTINUE TO MONITOR.
[2019-07-29 19:17] LABS: APPEARANCE,URINE CLEAR (CLEAR); BILIRUBIN,URINE NEGATIVE (NEGATIVE); BLOOD, URINE NEGATIVE (NEGATIVE); COLOR,URINE YELLOW (YELLOW); LEUKOCYTE ESTERASE ,URINE TRACE (NEGATIVE); NITRITE, URINE NEGATIVE (NEGATIVE); UGLUCOSE NEGATIVE (NEGATIVE)
[2019-07-29 19:22] VITALS: BP 110/58
--- NOTE | 2019-07-29 19:22 | NUR ---
Patient discharged with v/s stable. Written and verbal after care instructions given and explained. Patient verbalized understanding. Ambulatory with steady gait. All questions addressed prior to discharge. Advised to follow up with PMD.
[2019-07-29 19:30] LABS: RBC,URINE NONE SEEN /HPF (0-5); WBC,URINE 0-5 /HPF (0-5)
== END 2019-07-29 19:22 | disposition home or self-care (01) ==
LOC: MED 14:31
DX: R41.0 Disorientation, unspecified (principal); M54.5 Low back pain; I10 Essential (primary) hypertension; E03.9 Hypothyroidism, unspecified; G30.9 Alzheimer's disease, unspecified; F02.80 Dementia in other diseases classified elsewhere, unspecified severity, without behavioral disturbance, psychotic disturbance, mood disturbance, and anxiety; Z79.899 Other long term (current) drug therapy; Z79.1 Long term (current) use of non-steroidal anti-inflammatories (NSAID)
CPT/HCPCS: 36415; 74176; 80053; 81001; 83690; 84484; 85025; 96360; 99284; J7030

== ENCOUNTER 2020-07-23 14:48 | Inpatient (IN) | payer OTHER, MEDICAID, SELFPAY ==
[~2020-07-23] VITALS: Ht 154.9 cm; Wt 60.8 kg
--- NOTE | 2020-07-23 14:50 | NUR ---
Patient DEBBIE SUAZO from [facility], transferred to bed 3. RN evaluating patient at bedside.
[2020-07-23 14:58] VITALS: BP 145/89
--- NOTE | 2020-07-23 15:10 | NUR ---
79 YEAR OLD FEMALE BIBA, PER EMS IT IS BECAUSE PATIENT NORMALLY IS ALOT MORE ACTIVE BUT TODAY HAS NOT GOTTEN OUT OF BED. PT IS AOX0, DOES NOT ANSWER QUESTIONS BUT STATES "I DO NOT KNOW". PT BREATHING EVEN AND UNLABORED, SKIN WARM AND DRY. NO DISTRESS NOTED. PT EBED IN LOWEST POSITION, LOCKED, BED RAIL UPX2. PMH - ALZHEIMER, DEMENTIA, HTN ALLERGIES - NKA
[2020-07-23] MEDS ORDERED: NACL 0.9% 1,000 ML IV ONE (15:45)
--- NOTE | 2020-07-23 15:46 | NUR ---
Dr. Salazar is evaluating the patient at bedside.
--- NOTE | 2020-07-23 15:57 | NUR ---
COVID SWAB SENT TO LAB
--- NOTE | 2020-07-23 16:17 | NUR ---
XRAY IS AT BEDSIDE.
--- NOTE | 2020-07-23 16:30 | NUR ---
RECEIVED CRITICAL LAB FROM [facility]COM ALANIZ +COVID, DR. COTTO MADE AWARE.
--- NOTE | 2020-07-23 16:30 | NUR ---
PT ALERT AND AWAKE, BREATHING EVEN AND UNLABORED. NO DISTRESS NOTED
[2020-07-23 16:39] LABS: BASOPHILS % (AUTO) 0.2 % (0.0-2.0); HEMATOCRIT 33.8 % (36-48); HEMOGLOBIN 10.9 g/dL (12.0-16.0); LYMPHOCYTES % (AUTO) 39.6 % (20.5-51.1); MEAN CORPUSCULAR HEMOGLOBIN 28 pg (27-31); MEAN CORPUSCULAR HGB CONC 32 g/dL (33-37); MEAN CORPUSCULAR VOLUME 88.1 fL (80-94); MONOCYTES # (AUTO) 0.2 K/uL (0.8-1.0); MONOCYTES % (AUTO) 9.3 % (1.7-9.3); NEUTROPHILS # (AUTO) 1.3 K/uL (1.8-7.7); NEUTROPHILS % (AUTO) 50.9 % (42.2-75.2); PLATELET COUNT (AUTO) 103 K/uL (140-450); RED BLOOD CELL COUNT(AUTO) 3.84 MIL/uL (4.20-5.40); RED CELL DISTRIBUTION WIDTH 14.2 % (11.6-13.7); WHITE BLOOD COUNT (AUTO) 2.6 K/uL (4.8-10.8)
--- NOTE | 2020-07-23 16:41 | NUR ---
Straight cath performed, 250cc clear, yellow urine output. Pt tolerated well.
[2020-07-23 16:59] LABS: ALBUMIN 3.1 g/dL (3.4-5.0); ANION GAP 9.5 (8-16); ASPARTATE AMINOTRANSFERASE 36 U/L (15-37); CARBON DIOXIDE 31.4 mmol/L (21-32); CHLORIDE 106 mmol/L (98-107); CREATININE 0.7 mg/dL (0.6-1.3); GLUCOSE 97 mg/dL (74-106); SODIUM SERUM 144 mmol/L (136-145); THYROID STIMULATING HORMONE 0.23 uIU/mL (0.34-3.74); TOTAL BILIRUBIN 0.2 mg/dL (0.0-1.0); UREA NITROGEN, BLOOD 15 mg/dL (7-18)
[2020-07-23 17:04] LABS: POTASSIUM 2.9 mmol/L (3.5-5.1)
--- NOTE | 2020-07-23 17:05 | NUR ---
Potassium 2.9--critical value received from lab. Dr Salazar made aware.
[2020-07-23 17:11] LABS: APPEARANCE,URINE CLEAR (CLEAR); BILIRUBIN,URINE NEGATIVE (NEGATIVE); BLOOD, URINE NEGATIVE (NEGATIVE); COLOR,URINE YELLOW (YELLOW); LEUKOCYTE ESTERASE ,URINE NEGATIVE (NEGATIVE); NITRITE, URINE POSITIVE (NEGATIVE); UGLUCOSE NEGATIVE (NEGATIVE)
[2020-07-23] MEDS ORDERED: POTASSIUM CHLORIDE 10 MEQ TABER PO ONE (17:20)
[2020-07-23] MEDS ORDERED: MAGNESIUM OXIDE 400 MG TAB PO ONE (17:20)
[2020-07-23] MEDS ORDERED: MAG SULF 2000 MG/WATER PREMIX 50 ML IV ONE (17:25)
[2020-07-23] MEDS ORDERED: KCL 20 MEQ/WATER INJ PREMIX 100 ML IV ONE ×2 (17:25→21:03)
--- NOTE | 2020-07-23 17:30 | NUR ---
PT ALERT AND AWAKE, BREATHING EVEN AND UNLABORED. NO DISTRESS NOTED
[2020-07-23 17:47] LABS: RBC,URINE 0 /HPF (0-5)
[2020-07-23 17:48] LABS: WBC,URINE 0-5 /HPF (0-5)
--- NOTE | 2020-07-23 18:40 | NUR ---
Patient will be admitted to care of Dr Fuentes. Admited to Tele. Will go to room 127. Belongings list completed. Report to Ernestine MARTINEZ.
--- NOTE | 2020-07-23 19:15 | NUR ---
RECEIVED BEDSIDE SHIFT REPORT FROM DAY SHIFT NURSE. PT IN BED WITH HOB ELEVATED. PT AWAKE, ALERT, CONFUSED. PT WITH KNOWN CASE OF ALZHEIMER'S DISEASE. PT TRIES TO GET OUT OF BED AT TIMES. PT REORIENTED NEEDED. RESPIRATIONS ARE EVEN AND UNLABORED TO ROOM AIR. PT KEPT ON DROPLET PRECAUTION. ABDOMEN IS SOFT AND NON-TENDER. SKIN IS WARM, DRY, AND INTACT. PT WITH IV ACCESS G24 ON LEFT HAND PATENT AND INTACT. VS STABLE. NO S/SX OF PAIN OR DISTRESS NOTED. FLACC 0. SAFETY MEASURES IN PLACE. SIDE RAILS UP, CALL LIGHT WITHIN REACH, BED IN LOWEST POSITION. WILL CONTINUE TO MONITOR.
[2020-07-23 20:00] VITALS: BP 122/99
--- NOTE | 2020-07-23 21:11 | NUR ---
VITAL SIGNS STABLE. SCHEDULED MEDICATIONS GIVEN ORDERED. PT TRYING TO REMOVE LINES. PT REORIENTED. SAFETY MEASURES IN PLACE. WILL CONTINUE TO MONITOR.
--- NOTE | 2020-07-23 22:14 | NUR ---
ROUNDS MADE. PT IN BED SLEEPING. VISIBLE CHEST RISE AND FALL NOTED. IVF INFUSING WELL. FLACC 0. NO S/SX OF PAIN OR DISCOMFORT NOTED. PT KEPT COMFORTABLE. SAFETY MEASURES IN PLACE. WILL CONTINUE TO MONITOR.
[2020-07-23] MEDS ORDERED: HYDROcodone/APAP 7.5/325 MG 1 TAB PO PRN (22:40)
[2020-07-23] MEDS ORDERED: DOCUSATE SODIUM 100 MG GELCAP PO PRN (22:40)
[2020-07-23] MEDS ORDERED: ONDANSETRON 4 MG/2 ML VIAL IM/IVP PRN (22:40)
[2020-07-23 23:21] LABS: CHOL/HDL RATIO 2.6 (1-4.5); FREE T4 (FREE THYROXINE) 1.4 ng/dL (0.76-1.46)
[2020-07-23 23:34] LABS: PROTHROMBIN TIME 10.1 secs (10.8-13.4)
[2020-07-24] VITALS: BP 144/62
--- NOTE | 2020-07-24 00:02 | NUR ---
VITAL SIGNS STABLE. PT IN BED RESTING. NO S/SX OF DISTRESS. FLACC 0. IVF INFUSING WELL. PT KEPT COMFORTABLE. SAFETY MEASURES IN PLACE. WILL CONTINUE TO MONITOR.
--- NOTE | 2020-07-24 02:11 | NUR ---
ROUNDS MADE. PT ASLEEP. VISIBLE CHEST RISE AND FALL NOTED. PT NOT IN DISTRESS. NO S/SX OF PAIN OR DISCOMFORT. PT KEPT COMFORTABLE. SAFETY MEASURES IN PLACE. CALL LIGHT WITHIN REACH. WILL CONTINUE TO MONITOR.
[2020-07-24 04:00] VITALS: BP 134/56
--- NOTE | 2020-07-24 04:18 | NUR ---
VITAL SIGNS STABLE. PT RESTING IN BED. RESPIRATIONS EVEN AND UNLABORED. O2 SAT 94% ON ROOM AIR. PT NOT IN DISTRESS. FLACC 0. PT KEPT COMFORTABLE AND SAFE. SIDE RAILS RAISED, BED IN LOW POSITION, CALL LIGHT WITHIN REACH. WILL CONTINUE TO MONITOR.
[2020-07-24 05:32] LABS: BASOPHILS % (AUTO) 0.2 % (0.0-2.0); HEMATOCRIT 36.1 % (36-48); HEMOGLOBIN 11.6 g/dL (12.0-16.0); LYMPHOCYTES # (AUTO) 1.2 K/uL (2.5-16.5); LYMPHOCYTES % (AUTO) 39.8 % (20.5-51.1); MEAN CORPUSCULAR HEMOGLOBIN 29 pg (27-31); MEAN CORPUSCULAR HGB CONC 32 g/dL (33-37); MEAN CORPUSCULAR VOLUME 88.6 fL (80-94); MONOCYTES # (AUTO) 0.4 K/uL (0.8-1.0); MONOCYTES % (AUTO) 13.2 % (1.7-9.3); NEUTROPHILS # (AUTO) 1.4 K/uL (1.8-7.7); NEUTROPHILS % (AUTO) 46.8 % (42.2-75.2); PLATELET COUNT (AUTO) 100 K/uL (140-450); RED BLOOD CELL COUNT(AUTO) 4.07 MIL/uL (4.20-5.40); RED CELL DISTRIBUTION WIDTH 14.1 % (11.6-13.7)
[2020-07-24] MEDS: LEVOTHYROXINE 0.112 MG TAB PO SCH (05:38)
[2020-07-24 05:57] LABS: ANION GAP 15.2 (8-16); CHLORIDE 102 mmol/L (98-107); CREATININE 0.7 mg/dL (0.6-1.3); GLUCOSE 85 mg/dL (74-106); POTASSIUM 3.2 mmol/L (3.5-5.1); SODIUM SERUM 143 mmol/L (136-145); UREA NITROGEN, BLOOD 10 mg/dL (7-18)
[2020-07-24 06:07] LABS: MAGNESIUM 2.6 mg/dL (1.8-2.4); PHOSPHORUS 2.5 mg/dL (2.5-4.9)
--- NOTE | 2020-07-24 07:19 | NUR ---
ENDORSED TO DAY SHIFT NURSE FOR CONTINUITY OF CARE.
--- NOTE | 2020-07-24 07:25 | NUR ---
RECEIVED PATIENT FROM NIGHT NURSE. PATIENT SLEEPING IN BED. RESP EVEN AND UNLABORED ON ROOM AIR. NO NOTED ACUTE S/S DISTRESS AT THIS TIME. MITTENS NOTED BILATERAL. PATIENT REPORTED OF HAVING PERIODS OF CONFUSION AND REQUIRED REDIRECTING. 24G TKO. BED IN LOW POSITIONS CALL LIGHT WITHIN REACH. WILL CONTINUE TO MONITOR.
[2020-07-24 08:00] VITALS: BP 155/81
--- NOTE | 2020-07-24 08:31 | NUR ---
PATIENT HAS BEEN SCREENED AND CATEGORIZED MODERATE NUTRITION RISK. PATIENT WILL BE SEEN WITHIN 3-5 DAYS OF ADMISSION. 07/26/20 07/28/[address]
[2020-07-24] MEDS ORDERED: NON-FORMULARY ITEM (Chlorthalidone 1 TAB) PO SCH (09:00)
[2020-07-24] MEDS ORDERED: MENTHOL TP SCH (09:00)
[2020-07-24] MEDS ORDERED: RISPERIDONE PO SCH (09:00)
[2020-07-24] MEDS ORDERED: NON-FORMULARY ITEM (Calcium Carbonate/Vitamin D3 (Calcium 600 + Vit D3 Tablet) 1 TAB) PO SCH (09:00)
[2020-07-24] MEDS ORDERED: CAPSAICIN TP SCH (09:00)
[2020-07-24] MEDS: ZINC SULF 220 MG CAP PO SCH (09:56)
[2020-07-24] MEDS: risperiDONE 1 MG TAB PO SCH (09:57)
[2020-07-24] MEDS: lisinopriL 10 MG TAB PO SCH (09:57)
[2020-07-24] MEDS: CALCIUM CARB/VIT-D 500 MG/200 IU 1 TAB PO SCH (09:57)
[2020-07-24] MEDS: ASCORBIC ACID 500 MG TAB PO SCH (09:57)
[2020-07-24] MEDS: CHLORTHALIDONE 25 MG TAB PO SCH (09:58)
[2020-07-24] MEDS ORDERED: CRUSHER, PILL MC ONE (10:02)
--- NOTE | 2020-07-24 10:25 | NUR ---
MORNING ROUTINE MEDICATIONS GIVEN. PATIENT TOLERATING WELL. PATIENT AWAKE, ALERT, ORIENTED X1. RESPONDING TO NAME AND ABLE TO ACKNOWLEDGE NEEDS. PATIENT HAS SELECTIVE SPEECH BUT CLEAR. LUNGS DIMINISHED ANTERIOR LOWER BILATERAL LOBES. SKIN IS WARM TO TOUCH AND INTACT. DENIES OF PAIN AT THIS TIME. PLAN OF CARE DISCUSSED WITH PATIENT. PATIENT NODDED UNDERSTANDING. CALL LIGHT WITHIN REACH. BED IN LOW POSITION. WILL CONTINUE TO MONITOR.
[2020-07-24] MEDS: POTASSIUM CHLORIDE 10 MEQ TABER PO PRN (10:32)
--- NOTE | 2020-07-24 11:09 | NUR ---
SOCIAL WORK NOTE: Patient's Orientation Unable To Assess Information Provided By TAYA MULLINS - DAUGHTER Comments SW WAS UNABLE TO MEET PATIENT AT BEDSIDE. SW COMPLETED ASSESSMENT WITH PATIENT'S DAUGHTER TAYA MULLINS [phone]. Brooch Maker Novelty, Realtionship and Phone Number TAYA FLOREZ [phone] Healthcare Power of Drill Press Set Up Operator Radial No Does Patient Have a POLST No Identifying Problems No Social Work Triggers Is A Social Work Consult Needed No Mandate Report Filed No Explanation Of Identifying Problems PATIENT IS AN 79-YEAR-OLD FEMALE ADMITTED FOR COVID AND PANCYTOPENIA. PATIENT HAS PMHX OF DEMENTIA, ALZHEIMER'S, HYPERTENSION, AND HYPOTHYROIDISM. PATIENT WAS ADMITTED FROM [facility] [phone]. Admitted From Assisted Living/Resident Pre-Admission Level Of Functioning Status Total Care Level Of Functioning Comment PATIENT'S DAUGHTER STATED THAT PATIENT STAYS IN BED PREDOMINANTLY. Prior Resources/Services Used In Last 12 Months Assisted Living Prior Resources/Service Comments PATIENT IS A RESIDENT OF [facility]. Prior DME Cane Dialysis Comments DAUGHTER REPORTED THAT PATIENT DOES NOT RECEIVE DIALYSIS. Living Situation Asst'd Living/Board &Care Patient Had Caregiver No Home Support No Caregiver Issues Financial Issues No Known Financial Issue Referral To The Financial Counselor Needed No Factors/Needs Assist Living/B & C Plcmt Explanation And Or Other Factors Affecting/Possible DC Needs PATIENT'S DAUGHTER STATED SHE WOULD PREFER IF PATIENT RETURNED TO [facility]. Pt/Rep Participated In Discharge Plan Yes Patient/Family Agress With Discharge Plan Yes Discharge Plan Comments TENTATIVE DISCHARGE PLAN IS FOR PATIENT TO RETURN TO [facility]. DC Plan Status Initiated
[2020-07-24 12:00] VITALS: BP 125/50
--- NOTE | 2020-07-24 12:12 | NUR ---
DC WRAPPING CHECKER: RECEIVED PHONE CALL FROM THIERNO PENALOZA FROM [facility] [phone] INQUIRING DC PLAN FOR PATIENT. MADE HIM AWARE THAT PATIENT IS COVID POSITIVE AND WILL BE NEEDING SNF PLACEMENT. HE STATED ONCE PATIENT IS READY FOR DC HE WILL PROVIDE AUTH FOR SNF AND TRANSPORTATION. HE HAS BEEN IN CONTACT WITH PATIENTS DAUGHTER ABOUT PLANS FOR DC. FAXED PATIENTS CLINICALS TO [facility] AND CONTRACTED ASSISTED FACILITIES. Addendum: 07/24/20 at 1411 by Maryuri Fitzpatrick CM DC WRAPPING CHECKER: RECEIVED A CALL FROM BOTH [facility] AND [facility] THEY ARE BOTH ABLE TO ACCEPT THIS PATIENT. I WILL REACH OUT TO FAMILY MEMBER TO ASK IF THEY HAVE A PREFERENCE. Addendum: 07/25/20 at 1041 by Maryuri Fitzpatrick CM DC WRAPPING CHECKER: SPOKE TO PATIENTS TAYA DIAZ [phone] ABOUT DISCHARGE PLANS. SHE PREFERS HER MOTHER TO BE CLOSER TO HOME. SHE IS GOING TO DO HER RESEARCH ON THE CONTRACTED FACILITIES I PROVIDED AND CALL ME BACK. Addendum: 07/26/20 at 1016 by Maryuri Fitzpatrick CM ADELINA WORLEY: SPOKE TO PATIENTS DAUGHTER HER PREFERENCE IS FOR HER MOTHER TO GO TO [facility]. POSSIBLE DC FOR PATIENT TOMORROW. Addendum: 07/26/20 at 1400 by Maryuri Fitzpatrick CM ADELINA WORLEY: NEYMAR BELLA AT [facility] PATIENT CAN GO TO ROOM 208 B WHEN READY. Addendum: 07/27/20 at 1033 by Maryuri Fitzpatrick CM DC WRAPPING CHECKER: NOTIFIED [facility] THAT PATIENT IS READY FOR DC TODAY. HE GAVE AUTH FOR SNF AND TRANSPORTATION . HE STATED THAT THEY [facility], AND [facility]. WILL SET UP TRANSPORTATION ONCE I RECEIVE DC ORDER. Addendum: 07/27/20 at 1043 by Maryuri Fitzpatrick CM DC WRAPPING CHECKER: SPOKE TO PATIENTS TAYA DIAZ [phone] THAT PATIENT WILL BE DISCHARGING TO [facility] TODAY. Addendum: 07/27/20 at 1153 by Maryuri Fitzpatrick CM DC WRAPPING CHECKER: RECEIVED DC ORDER FOR PATIENT. NOTIFIED SAPNA AT [facility] THAT PATIENT WILL BE DISCHARGING TODAY. SPOKE TO SYLVIA TO SET UP TRANSPORTATION WITH [employer] [phone]. THEY SCHEDULED THE TRANSPORTATION WITH [facility] [phone] FOR 2:30PM [facility] [address] [facility] [place] [address] Addendum: 07/27/20 at 1536 by Tejal Simmons RECEIVED A CALL FROM PRIMARY JUAN JAVED STATING THE TRANSPORT IS HERE TO R D INTERN PATIENT HOWEVER PATIENT COULD NOT BE TRANSPORTED BY WHEELCHAIR. CONTACTED [facility] [phone], ABLE TO SPEAK TO ISREAL. PER ISREAL HE WILL FIND OUT IF THEY CAN SET UP AND WILL CALL ME BACK. CONTACTED SHAYNE FROM [facility] AT [phone], IF THEY ARE ABLE TO PROVIDE TRANSPORT FOR THIS PATIENT. PER SHAYNE THEY CAN R D INTERN PATIENT AT 1900. CHARGE NURSE MADE AWARE.
--- NOTE | 2020-07-24 12:35 | NUR ---
PATIENT WAS SEEN ATTEMPTING TO REMOVE HER MITTENS. TEACHING REINFORCED. PATIENT NODDED UNDERSTANDING. RESP EVEN AND UNLABORED ON ROOM AIR. PATIENT HAS SELECTIVE SPEECH AND ABLE TO ACKNOWLEDGE NEEDS. SAFETY MEASURES IN PLACE. WILL CONTINUE TO MONITOR.
--- NOTE | 2020-07-24 13:05 | NUR ---
PATIENT RESTING COMFORTABLY IN BED. PATIENT WAS ASSISTED TO EAT HER LUNCH BUT PATIENT REFUSED AND DIDN'T EAT MUCH. FLUIDS GIVEN AND PATIENT COMPLIED. PATIENT WAS ABLE TO FOLLOW COMMANDS. PATIENT DENIES OF PAIN. NO NOTED ACUTE S/S OF DISTRESS. CALL LIGHT WITHIN REACH. WILL CONTINUE TO MONITOR
[2020-07-24 16:00] VITALS: BP 155/81
--- NOTE | 2020-07-24 17:40 | NUR ---
PATIENT SEEN RESTLESS AND REMOVING HER MITTENS. O2SAT AT 75%. PATIENT WAS INSTRUCTED TO TAKE DEEP BREATHES AND O2SAT IMPROVED TO 85% AND MAINTAINED. 2L SUPPLEMENTAL OXYGEN GIVEN VIA NC. O2 SAT IMPROVED TO 89% AND DROPPING OFF READINGS. RT WAS CALLED AND REQUESTED A PULSE OX TO THE EAR LOBE. O2 SAT IMPROVED TO 99% ROOM AIR. PATIENT IS COMFORTABLE. AWAKE, ALERT BUT CONFUSED. ABLE TO FOLLOW COMMANDS. SAFETY MEASURES IN PLACE. WILL CONTINUE TO MONITOR.
--- NOTE | 2020-07-24 18:20 | NUR ---
TAYA DAUGHTER WAS CALLED PER DR GASTELUM REQUEST TO CLARIFY CODE STATUS. ACCORDING TO TAYA, PATIENT IS A DNR. DR GASTELUM MADE AWARE.
--- NOTE | 2020-07-24 19:35 | NUR ---
RECEIVED REPORT AND CONTINUITY OF CARE FROM AM NURSE. PT IS LYING IN BED, IS ABLE TO TRACK WITH HER EYES, BREATHING SPONTANEOUSLY ON ROOM AIR, TELE MONITOR ATTACHED, SKIN IS WARM, DRY, INTACT. IV IS PATENT, ASYMPTOMATIC, INTACT. ORIENTED PT TO CALL LIGHT AND STAFF. CALL LIGHT WITHIN REACH. BED IN LOW POSITION. WILL CONTINUE TO MONITOR.
--- NOTE | 2020-07-24 19:45 | NUR ---
ENDORSED PATIENT TO NIGHT NURSE. PATIENT IN STABLE CONDITION.
[2020-07-24 20:00] VITALS: BP 151/78
[2020-07-24] MEDS ORDERED: ASCORBIC ACID 500 MG TAB PO SCH (21:00)
[2020-07-24] MEDS: MIRTAZAPINE 15 MG TAB PO SCH ×2 (21:52→22:04)
--- NOTE | 2020-07-24 22:02 | NUR ---
HELD HEPARIN DUE TO DECREASED PLATELETS. PT REFUSED TO TAKE PO MED BY NOT OPENING HER MOUTH. EDUCATION WAS GIVEN. PT DID NOT RESPOND. PT IS IN STABLE CONDITION. WILL CONTINUE TO MONITOR.
[2020-07-25] VITALS: BP 157/75
--- NOTE | 2020-07-25 01:12 | NUR ---
PT REPOSITION. NO SIGNS OF DISTRESS NOTED.
--- NOTE | 2020-07-25 03:15 | NUR ---
PT IS SLEEPING. VISIBLE CHEST RISE NOTED.
[2020-07-25 04:00] VITALS: BP 143/67
[2020-07-25 05:25] LABS: EOSINOPHILS % (AUTO) 0.2 % (0.0-4.0); HEMATOCRIT 40.1 % (36-48); HEMOGLOBIN 13.1 g/dL (12.0-16.0); LYMPHOCYTES # (AUTO) 1.2 K/uL (2.5-16.5); MEAN CORPUSCULAR HEMOGLOBIN 28 pg (27-31); MEAN CORPUSCULAR HGB CONC 33 g/dL (33-37); MEAN CORPUSCULAR VOLUME 86.8 fL (80-94); MONOCYTES # (AUTO) 0.4 K/uL (0.8-1.0); MONOCYTES % (AUTO) 8.6 % (1.7-9.3); NEUTROPHILS % (AUTO) 64.2 % (42.2-75.2); PLATELET COUNT (AUTO) 115 K/uL (140-450); RED BLOOD CELL COUNT(AUTO) 4.62 MIL/uL (4.20-5.40); RED CELL DISTRIBUTION WIDTH 13.9 % (11.6-13.7); WHITE BLOOD COUNT (AUTO) 4.7 K/uL (4.8-10.8)
[2020-07-25 05:56] LABS: ANION GAP 10.1 (8-16); CARBON DIOXIDE 30.4 mmol/L (21-32); CHLORIDE 98 mmol/L (98-107); CREATININE 0.8 mg/dL (0.6-1.3); GLUCOSE 90 mg/dL (74-106); POTASSIUM 3.5 mmol/L (3.5-5.1); SODIUM SERUM 135 mmol/L (136-145); UREA NITROGEN, BLOOD 7 mg/dL (7-18)
--- NOTE | 2020-07-25 05:56 | NUR ---
PT IS SLEEPING. NO SIGNS OF DISTRESS NOTED.
[2020-07-25 06:03] LABS: MAGNESIUM 2.1 mg/dL (1.8-2.4); PHOSPHORUS 2.1 mg/dL (2.5-4.9)
[2020-07-25] MEDS: LEVOTHYROXINE 0.112 MG TAB PO SCH (06:46)
--- NOTE | 2020-07-25 07:30 | NUR ---
ENDORSED CARE TO AM NURSE. PT IS SLEEPING. NO SIGNS OF DISTRESS NOTED.
--- NOTE | 2020-07-25 07:31 | NUR ---
RECEIVED REPORT FROM TOY STUFFER RN FOR CONTINUITY OF CARE. PT APPEARS STABLE, LAYING IN BED WITH BILATERAL MITTENS. MITTEN ORDER RENEWED DR. GASTELUM DUE TO CONTINUED ATTEMPTS TO PULL OUT TUBES. IN NO DISTRESS. SAFETY MEASURES REMAIN IN PLACE. WILL CONTINUE WITH POC.
[2020-07-25 08:00] VITALS: BP 131/50
[2020-07-25 08:08] LABS: T4 (THYROXINE) 8.5 ug/dL (4.5-12.0)
--- NOTE | 2020-07-25 08:50 | NUR ---
PT IS AWAKE ORIENTED TO NAME. SELECTIVELY MUTE. PT. TOLERATED PO MEDICATION WITH NO PROBLEM. V/S: 98.8, 82, 18, 131/50, 98% RA PAIN FLACC-0 PT TOLERATED PO CRUSHED MEDICATION WITH NO ISSUES. GIVEN K-DUR PER MD ORDER DUE TO K OF 3.5. LUNG SOUNDS DIMINISHED ABD IS FLAT, SOFT AND NONTENDER, ACTIVE BS. UNKNOWN LBM. PT HAS IV ACCESS TO LEFT HAND THAT IS INTACT AND PATENT. HAS APPLIED BILATERAL MITTENS THAT RENEWED AT [address] GASTELUM DUE TO ATTEMPTING TO PULL OUT TUBES. NO CIRCULATORY IMPAIRMENT. NO INJURIES. ROM WAS PROVIDED. SKIN INTACT. SAFETY MEASURES IN PLACE.
[2020-07-25] MEDS ORDERED: ZINC SULF 220 MG CAP PO SCH (09:00)
[2020-07-25] MEDS: ASCORBIC ACID 500 MG TAB PO SCH (09:04)
[2020-07-25] MEDS: ZINC SULF 220 MG CAP PO SCH (09:05)
[2020-07-25] MEDS: CALCIUM CARB/VIT-D 500 MG/200 IU 1 TAB PO SCH (09:05)
[2020-07-25] MEDS: POTASSIUM CHLORIDE 10 MEQ TABER PO PRN (09:06)
[2020-07-25] MEDS: risperiDONE 1 MG TAB PO SCH (09:06)
[2020-07-25] MEDS: lisinopriL 10 MG TAB PO SCH (09:06)
[2020-07-25] MEDS: CHLORTHALIDONE 25 MG TAB PO SCH (09:28)
--- NOTE | 2020-07-25 10:28 | NUR ---
RECEIVED A PHONE CALL FROM HER DAUGHTER WANTING TO KNOW UPDATE, WAS NOTIFIED PT REFUSING BREAKFAST. DAUGHTER WANTED TO SPEAK TO MOM VIA SPEAKER. PT RESPONDED WELL TO DAUGHTER AND STATED SHE WOULD TRY TO EAT. IN NO DISTRESS. ALL NEEDS MET AT THIS TIME.
[2020-07-25 12:00] VITALS: BP 124/55
--- NOTE | 2020-07-25 12:30 | NUR ---
V/S: 99.2, 90, 18, 124/55, 97% RA. PAIN 0/10. PT AWAKE RESTING ROM WAS DONE. MITTENS IN PLACE WITH NO CIRCULATORY IMPAIRMENT.
--- NOTE | 2020-07-25 14:34 | NUR ---
PT RESTING IN BED IN NO DISTRESS. ALL NEEDS MET. WILL CONTINUE TO MONITOR.
[2020-07-25 16:00] VITALS: BP 101/49
--- NOTE | 2020-07-25 16:50 | NUR ---
PT LAYING IN BED AWAKE MOVING ARMS AROUND, TUBES HIDDEN UNDER SHEET TO PREVENT PULLING OUT. V/S: 98.0, 104, 18, 101/49, 95% RA PAIN FLACC-0. PROVISION OF CARE PROVIDED PT WAS TURNED. ROM DONE WITH NO CIRCULATORY IMPAIRMENT, MITTENS REAPPLIED. NO SKIN BREAKDOWN. PT RESPONDS WITH MUMBLING NOT CLEAR COMPLETED SENTENCES. SAFETY MEASURES IN PLACE. ALL NEEDS MET.
--- NOTE | 2020-07-25 18:40 | NUR ---
PT ATE 95% OF DINNER WITH ASSISTANCE AND ENCOURAGEMENT PT TOLERATED WELL, DAUGHTER WAS CALLED AND UPDATED PT WAS ABLE TO EAT WELL. ALL NEEDS MET
--- NOTE | 2020-07-25 19:15 | NUR ---
REPORT GIVEN TO BATCH TANK CONTROLLER RN FOR CONTINUITY OF CARE. PT IS STABLE
--- NOTE | 2020-07-25 19:15 | NUR ---
RECEIVED REPORT FROM ALISIA RNJANN. PT AOX1 TO NAME ON ROOM AIR. NO S/S RESPIRATORY DISTRESS. FLACC 0. IV SITE LEFT HAND 24G PATENT AND INTACT. HAS CODIE MITTENS, NO CIRCULATORY IMPAIRMENT, NO INJURIES. SAFETY MEASURES IN PLACE. CALL LIGHT WITHIN REACH. WILL CONTINUE TO MONITOR
[2020-07-25 20:00] VITALS: BP 110/48
[2020-07-25] MEDS: ACETAMINOPHEN 325 MG TAB PO PRN (20:55)
--- NOTE | 2020-07-25 21:03 | NUR ---
PT TEMP 100.4. ADMINISTERED PRN TYLENOL VIA CRUSHED WITH APPLE SAUCE. TOLERATED WELL. WILL CONTINUE TO MONITOR
--- NOTE | 2020-07-25 23:30 | NUR ---
PT STATES, "OUCH", MOANING, FACIAL GRIMACING, LEGS FLEXED. ADMINISTERED PRN PAIN MEDICATION. PT TOLERATED CRUSHED MEDS WELL. WILL CONTINUE TO MONITOR
[2020-07-26] VITALS: BP 106/53
--- NOTE | 2020-07-26 01:00 | NUR ---
PT HEART RATE WENT UP TO 160, PT WAS GIVEN IVP/PRN METOPROLOL 5MG/5ML. PT ALSO GIVEN PO/PRN TYLENOL FOR DISCOMFORT. COOLING MEASURES WITH OF ICE PACKS PROVIDED TO GROIN AREAS FOR INCREASED TEMPERATURE. PT WAS FEED MOST OF THE REMAINDER OF HER SUPPER. ALL DROPLET AND FALLS PRECAUTIONS IN PLACE.
--- NOTE | 2020-07-26 01:00 | NUR ---
CLEANED CHANGED TURNED PT, TOLERATED WELL. NO DISTRESS NOTED. WILL CONTINUE TO MONITOR
--- NOTE | 2020-07-26 03:24 | NUR ---
PT AWAKE RESTING IN BED. NO DISTRESS NOTED. FLACC 0. WILL CONTINUE TO MONITOR.
[2020-07-26 04:00] VITALS: BP 110/44
[2020-07-26 05:35] LABS: BASOPHILS % (AUTO) 0.1 % (0.0-2.0); HEMATOCRIT 37.7 % (36-48); HEMOGLOBIN 12.4 g/dL (12.0-16.0); LYMPHOCYTES # (AUTO) 1.2 K/uL (2.5-16.5); LYMPHOCYTES % (AUTO) 23.5 % (20.5-51.1); MEAN CORPUSCULAR HEMOGLOBIN 29 pg (27-31); MEAN CORPUSCULAR HGB CONC 33 g/dL (33-37); MEAN CORPUSCULAR VOLUME 86.4 fL (80-94); MONOCYTES # (AUTO) 0.7 K/uL (0.8-1.0); MONOCYTES % (AUTO) 14.2 % (1.7-9.3); NEUTROPHILS # (AUTO) 3.1 K/uL (1.8-7.7); NEUTROPHILS % (AUTO) 62.2 % (42.2-75.2); PLATELET COUNT (AUTO) 116 K/uL (140-450); RED BLOOD CELL COUNT(AUTO) 4.36 MIL/uL (4.20-5.40); RED CELL DISTRIBUTION WIDTH 14.3 % (11.6-13.7)
[2020-07-26] MEDS: LEVOTHYROXINE 0.112 MG TAB PO SCH (05:36)
[2020-07-26 05:42] LABS: CARBON DIOXIDE 26.5 mmol/L (21-32); CHLORIDE 101 mmol/L (98-107); GLUCOSE 124 mg/dL (74-106); POTASSIUM 4.5 mmol/L (3.5-5.1); SODIUM SERUM 136 mmol/L (136-145); UREA NITROGEN, BLOOD 25 mg/dL (7-18)
[2020-07-26 05:43] LABS: PHOSPHORUS 2.5 mg/dL (2.5-4.9)
--- NOTE | 2020-07-26 06:12 | NUR ---
CLEANED, CHANGED, REPOSITIONED PT, TOLERATED WELL. NO DISTRESS NOTED. WILL CONTINUE TO MONITOR
--- NOTE | 2020-07-26 07:20 | NUR ---
RECEIVED REPORT FROM NIGHT NURSE FOR CONTINUITY OF CARE, PT IS STABLE, NO SIGNS OF DISTRESS NOTED, RESPIRATIONS ARE EVEN AND UNLABORED ON ROOM AIR, PT HAS LEFT HAND 24G TKO, BED IN LOW POSITION, SAFETY MEASURES IN PLACE, WILL CONTINUE TO MONITOR. CALL LIGHT WITHIN REACH.
--- NOTE | 2020-07-26 07:20 | NUR ---
ENDORSED PT TO DAY RN FOR CONTINUITY OF CARE. PT IS IN STABLE CONDITION
[2020-07-26 08:00] VITALS: BP 113/50
[2020-07-26] MEDS: CALCIUM CARB/VIT-D 500 MG/200 IU 1 TAB PO SCH (09:52)
[2020-07-26] MEDS: CHLORTHALIDONE 25 MG TAB PO SCH (09:52)
[2020-07-26] MEDS: ASCORBIC ACID 500 MG TAB PO SCH (09:53)
[2020-07-26] MEDS: risperiDONE 1 MG TAB PO SCH (09:53)
[2020-07-26] MEDS: lisinopriL 10 MG TAB PO SCH (09:54)
[2020-07-26] MEDS: ZINC SULF 220 MG CAP PO SCH (09:54)
--- NOTE | 2020-07-26 09:59 | NUR ---
ADMINISTERED SCHEDULED MEDICATION, MEDICATION EDUCATION PROVIDED, PT TOLERATED WELL WITH APPLESAUCE, PT IS STABLE, NO SIGNS OF DISTRESS NOTED, RESPIRATIONS ARE EVEN AND UNLABORED ON ROOM AIR, CALL LIGHT WITHIN REACH, WILL CONTINUE TO MONITOR.
[2020-07-26] MEDS: NACL 0.9% 1,000 ML IV SCH ×2 (10:30→23:00)
[2020-07-26] MEDS ORDERED: NACL 0.9% 1,000 ML IV SCH (10:35)
--- NOTE | 2020-07-26 11:30 | NUR ---
PT ASLEEP IN BED, NO SIGNS OF DISTRESS NOTED, RESPIRATIONS EVEN AND UNLABORED ON ROOM AIR, CALL LIGHT WITHIN REACH, WILL CONTINUE TO MONITOR.
[2020-07-26 12:00] VITALS: BP 111/34
--- NOTE | 2020-07-26 13:00 | NUR ---
PT RESTING IN BED, NO SIGNS OF DISTRESS NOTED, RESPIRATIONS ARE EVEN AND UNLABORED ON ROOM AIR, CALL LIGHT WITHIN REACH, WILL CONTINUE TO MONITOR.
--- NOTE | 2020-07-26 14:33 | NUR ---
07/26/20 RD INITIAL ASSESSMENT COMPLETED PLEASE REFER TO NUTRITION ASSESSMENT UNDER CARE ACTIVITY FOR ESTIMATED NUTRITIONAL NEEDS. 1. RECOMMEND PUREE DIET TOLERATED 2. CONTINUE ENSURE BID 3. PROVIDE FEEDING ASSISTANCE WITH MEALS 4. RD TO FOLLOW-UP 2-3 DAYS, HIGH RISK UBALDO COSME, RD
--- NOTE | 2020-07-26 15:30 | NUR ---
MANAGER ACADEMIC NOTIFIED NURSE PT WAS IN SINUS TACHYCARDIA WITH HEART RATE OF 160. WENT TO PT AND TOOK VITAL SIGNS TEMP 99.5, BP 145/51, P 109, O2: [address] FRAGOSO, RECEIVED TORB FOR STAT EKG, AND POSTAL MAIL CARRIER CONSULT, CONTINUE TO MONITOR FOR DISTRESS, WILL INPUT ORDERS AND CARRY THEM OUT. WILL CONTINUE TO MONITOR.
--- NOTE | 2020-07-26 15:34 | NUR ---
BOAT OFFICER REPORTED PT HEART RATE WAS 160, WHEN INTO THE ROOM TO ASSESS PT, PT RESTING IN BED, NO SIGNS OF DISTRESS NOTED, BP:105/51, HR 109, 02 94, RR:20, NOTIFIED DR FRAGOSO AND RECEIVED TORB ORDERS. WILL CONTINUE TO MONITOR.
[2020-07-26 16:00] VITALS: BP 106/55
[2020-07-26] MEDS ORDERED: METOPROLOL 5 MG/5 ML VIAL IV PRN (16:00)
--- NOTE | 2020-07-26 16:00 | NUR ---
NOTIFIED DR ZAMORA OF CARDIOLOGY CONSULT. INFORMED DR ZAMORA PT A FIB WITH HR 155, RECEIVED TORB FOR METOPROLOL 5MG IVP Q4H PRN FOR HR >120, DIGOXIN 0.5MG IVP NOW, METOPROLOL 25MG PO BID HOLD SYSTOLIC <100, HR <55, WILL INPUT ORDERS AND CARRY THEM OUT.
[2020-07-26] MEDS ORDERED: DIGOXIN 0.25 MG/ML AMP IV SCH (16:05)
--- NOTE | 2020-07-26 17:00 | NUR ---
PT IS STABLE, NO SIGNS OF DISTRESS NOTED, RESPIRATIONS ARE EVEN AND UNLABORED ON ROOM AIR, CALL LIGHT WITHIN REACH. WILL CONTINUE TO MONITOR.
--- NOTE | 2020-07-26 19:20 | NUR ---
ENDORSE PT TO NIGHT NURSE FOR CONTINUITY OF CARE, PT IS STABLE
--- NOTE | 2020-07-26 19:30 | NUR ---
RECEIVED REPORT FORM JUAN RN DAYSHIFT NURSE AT BEDSIDE FOR CONTINUITY OF CARE, PT IN STABLE CONDITION.
[2020-07-26 20:00] VITALS: BP 156/68
--- NOTE | 2020-07-26 20:00 | NUR ---
PT SITTING UP IN BED DROWSY AND AROUSABLE TO NAME, SHAKING AND LIGHT PAIN. LUNG SOUNDS CLEAR AND DIMINISHED. SKIN INTACT AND IV SITE ASYMPTOMATIC AND RUNNING NORMAL SALINE AT 80MLS/HR. PT RESTRAINTS OF AT THIS TIME. V/S FOLLOWS: T 97.9 P 96 R 20 B/P 156/68 02 95% ON ROOM AIR. ALL FALLS AND DROPLET PRECAUTIONS IN PLACE.
--- NOTE | 2020-07-26 20:54 | NUR ---
UPDATED DAUGHTER AND NEXT OF KIN TAYA REGARDING MOTHER CONDITION. MD VALDES FOR INFECTIOUS DISEASES CONSULTED, MD Grimes/NAZ DIANA'S.
--- NOTE | 2020-07-26 21:30 | NUR ---
PT GIVEN SCHEDULED MEDS CRUSHED WITH APPLE SAUCE. PT ABLE TO SWALLOW, PT REFUSED TO SWALLOW LIQUIDS OFFERED. PT UNABLE TO UNDERSTAND EDUCATION REGARDING MEDICATION PROVIDED AT BEDSIDE. HOB UP 45%. ALL DROPLET AND FALLS PRECAUTIONS IN PLACE.
--- NOTE | 2020-07-26 22:30 | NUR ---
PT WAS REPOSITIONED IN BED, IV SITE INTACT AND CONTINUES TO RUN N/S AT 80 MLS/HR. ALL DROPLET AND FALLS PRECAUTIONS IN PLACE. PT RESTING WITH NO ATTEMPTS TO GET OUT OF BED OR PULL ON TUBES OR LINES, MITTS REMAIN OFF.
[2020-07-26] MEDS: METOPROLOL SUCCINATE 50 MG TABER PO SCH (22:50)
[2020-07-26] MEDS: MIRTAZAPINE 15 MG TAB PO SCH (22:51)
[2020-07-26] MEDS ORDERED: CRUSHER, PILL MC ONE (22:52)
[2020-07-27] VITALS: BP 142/55
--- NOTE | 2020-07-27 00:30 | NUR ---
PT IN BED SHE WAS TURNED, CHANGED AND REPOSITIONED IN BED. IV SITE INTACT AND RUNNING NORMAL SALINE AT 80MLS/HR. PT HAS NO BEHAVIOR NOTED, MITT RESTRAINTS REMAIN OFF. V/S FOLLOWS: T 99.8 P 107 R 18 B/P 142/55 02 92% ON ROOM AIR. ALL FALLS AND DROPLET PRECAUTIONS IN PLACE.
[2020-07-27] MEDS: ACETAMINOPHEN 325 MG TAB PO PRN (02:14)
--- NOTE | 2020-07-27 02:30 | NUR ---
RETAKE OF PT B/P IS 144/52 P IS 112.
[2020-07-27 04:00] VITALS: BP 107/54
--- NOTE | 2020-07-27 04:00 | NUR ---
PT WAS TURNED, CHANGED AND REPOSITIONED IN BED V/S FOLLOWS: T 98.6 P 74 R 18 B/P 107/53 02 98% ON ROOM AIR. ALL DROP;LET AND FALLS PRECAUTIONS IN PLACE.
--- NOTE | 2020-07-27 06:30 | NUR ---
PT GIVEN ORDERED SYNTHROID NO S/S OF PAIN OR DISTRESS NOTED. ALL DROPLET AND FALLS PREVENTION IN PLACE.
[2020-07-27] MEDS: LEVOTHYROXINE 0.112 MG TAB PO SCH (06:49)
--- NOTE | 2020-07-27 07:20 | NUR ---
RECEIVED REPORT FROM PM RNCLARENCE. PT CAME FROM [facility]. CC: GEN WEAKNESS, ALOC. DX: COVID, HYPOXIA, PANCYTOPENIA, HYPOKALEMIA. HX: DEMENTIA, HTN, HYPOTHYROIDISM. NKA. PT ON TELE: AFIB,TACHY, 110-114, HIGHEST LAST NIGHT WAS 165. PT IS A&OX1. DIET: PUREE, FEEDER. CRUSH MEDS MIXED IN APPLESAUCE. USE HONEY THICK FOR LIQUIDS. PT IS INCONTINENT. SKIN IS INTACT. PT IS ON RA. IV: LT HAND 24G, RUNNING NS. RAPID IS POSITIVE, PENDING PCR. PLAN: MONITOR PT, F/U WITH FAMILY, PENDING CONSULT.
[2020-07-27 08:00] VITALS: BP 151/78
[2020-07-27 08:48] LABS: BASOPHILS % (AUTO) 0.3 % (0.0-2.0); HEMATOCRIT 39.3 % (36-48); HEMOGLOBIN 12.7 g/dL (12.0-16.0); LYMPHOCYTES # (AUTO) 1.2 K/uL (2.5-16.5); LYMPHOCYTES % (AUTO) 26.8 % (20.5-51.1); MEAN CORPUSCULAR HEMOGLOBIN 29 pg (27-31); MEAN CORPUSCULAR HGB CONC 33 g/dL (33-37); MEAN CORPUSCULAR VOLUME 87.7 fL (80-94); MONOCYTES # (AUTO) 0.5 K/uL (0.8-1.0); MONOCYTES % (AUTO) 12.3 % (1.7-9.3); NEUTROPHILS # (AUTO) 2.7 K/uL (1.8-7.7); NEUTROPHILS % (AUTO) 60.6 % (42.2-75.2); PLATELET COUNT (AUTO) 114 K/uL (140-450); RED BLOOD CELL COUNT(AUTO) 4.47 MIL/uL (4.20-5.40); RED CELL DISTRIBUTION WIDTH 13.9 % (11.6-13.7); WHITE BLOOD COUNT (AUTO) 4.5 K/uL (4.8-10.8)
[2020-07-27 09:03] LABS: ANION GAP 11.6 (8-16); CARBON DIOXIDE 27.8 mmol/L (21-32); CHLORIDE 101 mmol/L (98-107); CREATININE 1.4 mg/dL (0.6-1.3); GLUCOSE 115 mg/dL (74-106); POTASSIUM 4.4 mmol/L (3.5-5.1); SODIUM SERUM 136 mmol/L (136-145); UREA NITROGEN, BLOOD 27 mg/dL (7-18)
--- NOTE | 2020-07-27 09:30 | NUR ---
PASSED MEDICATIONS TO PT. CRUSHED AND MIXED IN APPLE SAUCE. PT TOLERATED WELL. NO SIGNS OF PAIN OR DISTRESS. VISIBLE RISE AND FALL OF CHEST. RESPIRATIONS ARE EVEN AND UNLABORED.
[2020-07-27] MEDS: ASCORBIC ACID 500 MG TAB PO SCH (09:31)
[2020-07-27] MEDS: CALCIUM CARB/VIT-D 500 MG/200 IU 1 TAB PO SCH (09:31)
[2020-07-27] MEDS: lisinopriL 10 MG TAB PO SCH (09:32)
[2020-07-27] MEDS: risperiDONE 1 MG TAB PO SCH (09:32)
[2020-07-27] MEDS: METOPROLOL SUCCINATE 50 MG TABER PO SCH (09:33)
[2020-07-27] MEDS: ZINC SULF 220 MG CAP PO SCH (09:33)
[2020-07-27] MEDS: CHLORTHALIDONE 25 MG TAB PO SCH (09:40)
--- NOTE | 2020-07-27 11:00 | NUR ---
GAVE NEW BAG OF SALINE RUNNING AT 80MLS PER HOURS. COMPLETED ROUND. PT IS SLEEPING IN BED. NO SIGNS OF DISTRESS. EVEN RISE AND FALL OF CHEST.
[2020-07-27] MEDS ORDERED: CEPH250C16 PO (11:16)
[2020-07-27] MEDS ORDERED: LISI10TA11 PO (11:16)
[2020-07-27] MEDS ORDERED: METO25TA PO (11:16)
[2020-07-27] MEDS: NACL 0.9% 1,000 ML IV SCH (11:50)
[2020-07-27 12:00] VITALS: BP 111/56
--- NOTE | 2020-07-27 12:30 | NUR ---
RECEIVED DC ORDERS FOR TRANSFER. CALLED [facility]. GAVE REPORT TO ANAND. PT WILL BE PICKED UP AT 1430.
[2020-07-27 13:37] VITALS: BP 111/56
--- NOTE | 2020-07-27 15:00 | NUR ---
MISCOMMUNICATION BETWEEN THE [facility]ARM[facility] SALES REPRESENTATIVE AND STAFF. PT WILL BE DC AT 1900 TONIGHT. CALLED [facility] TO NOTIFY ON CHANGE OF ETA.
[2020-07-27 16:00] VITALS: BP 121/58
--- NOTE | 2020-07-27 16:40 | NUR ---
LAB CALLED. PT'S PCR COVID [address] FRAGOSO NOTIFIED. PT IS STILL BEING DC TO FACILITY.
--- NOTE | 2020-07-27 18:27 | NUR ---
FAMILY HAS BEEN NOTIFIED OF CHANGE IN TIME. FAMILY ALSO NOTIFIED IN PT'S COVID STATUS. FAMILY IS GRATEFUL. COMPLETED ROUND. PT IS RESTING IN BED. NO VISIBLE SIGNS OF DISTRESS. EKG IS NORMAL.
--- NOTE | 2020-07-27 19:00 | NUR ---
PT WAS PICKED UP BY [facility].
[2020-07-28] MEDS ORDERED: DILTIAZEM 120 MG CAPER PO SCH (09:00)
== END 2020-07-27 19:15 | DRG 177 ==
LOC: MED 14:48 → MMU 17:26
PROVIDERS: ADMIT Emergency Medicine; ATTEND Emergency Medicine
DX: U07.1 COVID-19 (principal); G93.41 Metabolic encephalopathy; N17.0 Acute kidney failure with tubular necrosis; D61.818 Other pancytopenia; E44.1 Mild protein-calorie malnutrition; G93.40 Encephalopathy, unspecified; N39.0 Urinary tract infection, site not specified; E03.9 Hypothyroidism, unspecified; G30.9 Alzheimer's disease, unspecified; F02.80 Dementia in other diseases classified elsewhere, unspecified severity, without behavioral disturbance, psychotic disturbance, mood disturbance, and anxiety; I10 Essential (primary) hypertension; E87.6 Hypokalemia; K44.9 Diaphragmatic hernia without obstruction or gangrene; E86.0 Dehydration; I48.91 Unspecified atrial fibrillation; Z68.25 Body mass index [BMI] 25.0-25.9, adult; Z79.899 Other long term (current) drug therapy
CPT/HCPCS: 36415; 71045; 80048; 80053; 81001; 83036; 83605; 83690; 83735; 83880; 84100; 84436; 84439; 84443; 84479; 84484; 85025; 85610; 85730; 87040; 87081; 87086; 93005; 97110; 97112; 97116; 97161-GP; 97530; 99285; J0696; J1160; J1644; J3475; J3480; J3490; J7030; J7060; Q0092; U0003-CS